=== PATIENT | male | born 1975 | race Caucasian/White ===

== ENCOUNTER 2018-01-02 09:18 | Emergency (ER) | payer OTHER ==
[2018-01-02 09:27] VITALS: BP 164/115
--- NOTE | 2018-01-02 09:33 | UC ---
UC General HPI - HPI Summary HPI Summary: This is scribe Ed Amrisa documenting for attending Dr. Austin Prieto. 42 y/o male presents to the ED c/o sinus pressure DAVID starting yesterday. Pt c/o head pressure with pain radiating to the neck. Pain located mostly in the forehead, described as a "band of pressure". Pain aggravated with head position. Associated sx: yellowish rhinorrhea. Denies sore throat, CP, SOB. Pt states general malaise. Pt states he has misplaced his Metropolol. I, Dr. Lara, personally performed the services described in this documentation as scribed in my presence and it is both accurate and complete. - History of Current Complaint Chief Complaint: UCGeneralIllness Stated Complaint: SINUS ISSUE Hx Obtained From: Patient Onset/Duration: Lasting Days Timing: Constant Pain Intensity: 5 Pain Location at: Head pressure Aggravating: Head position Associated Signs & Symptoms: Positive: Headache, Other - neck pain, rhinorrhea. Negative: Chest Pain - Allergy/Home Medications Allergies/Adverse Reactions: Allergies Allergy/AdvReac Type Severity Reaction Status Date / Time No Known Allergies Allergy Verified 01/02/18 09:27 PMH/Surg Hx/FS Hx/Imm Hx Previously Healthy: No Endocrine History: Other Other Endocrine History: Negative: DM Cardiovascular History: Hypertension, Myocardial Infarction - Surgical History Surgical History: Yes Surgery Procedure, Year, and Place: HEART CATHETERIZATION - Family History Known Family History: Positive: Cardiac Disease - triple bypass - mom, quadruple bypass - father, Diabetes - father - Social History Alcohol Use: None Substance Use Type: None Smoking Status (MU): Never Smoked Tobacco - Immunization History Most Recent Influenza Vaccination: no Review of Systems Constitutional: Negative Skin: Negative Eyes: Negative ENT: Nasal Discharge - yellowish Respiratory: Negative Cardiovascular: Negative Gastrointestinal: Negative Genitourinary: Negative Motor: Negative Neurovascular: Negative Musculoskeletal: Negative Neurological: Headache - radiating to neck Psychological: Negative All Other Systems Reviewed And Are Negative: Yes Physical Exam Triage Information Reviewed: Yes Appearance: Well-Appearing, No Pain Distress Vital Signs: Initial Vital Signs Temp 98 F 01/02/18 09:24 Pulse 86 01/02/18 09:24 Resp 18 01/02/18 09:24 BP 164/115 01/02/18 09:24 Pulse Ox 98 08/16/18 09:24 Vital Signs Reviewed: Yes Eyes: Positive: Conjunctiva Clear ENT: Positive: Pharyngeal erythema - posterior, Other - positive rhinorrhea Neck: Positive: Supple, Nontender Respiratory: Positive: Lungs clear, Normal breath sounds Cardiovascular: Positive: RRR Abdomen Description: Positive: Nontender, Soft Bowel Sounds: Positive: Present Musculoskeletal: Positive: Strength Intact, ROM Intact Neurological: Positive: Alert Psychological: Positive: Age Appropriate Behavior Skin Exam: Normal Course/Dx - Course Course Of Treatment: PATIENT IS OUT OF HIS TOPRAL XL 50MG PO QD. DISCUSSED VIRAL VERSES BACTERIAL INFECTION AND THE ROLE OF ANTIBIOTICS. THE PATIENT WISHES TO BE ON ANTIBIOTICS AT THIS TIME. F/U PMD; RECHECK SOONER IF WORSE. - Differential Dx - Multi-Symptom Provider Diagnoses: SINUSITIS. HYPERTENSION Discharge - Sign-Out/Discharge Documenting (check all that apply): Patient Departure - Discharge Plan Condition: Stable Disposition: HOME Prescriptions: Amoxicillin/Clavulanate TAB* [Augmentin TAB 875*] 875 mg PO BID #20 tab Metoprolol Succinate [Toprol Xl] 50 mg PO DAILY #30 tab.er.24h Patient Education Materials: Sinusitis (ED), Acute Headache (ED), Hypertension (ED) Forms: *Work Release Referrals: [facility]FERR[facility] [Outside] Additional Instructions: FOLLOW UP WITH YOUR DOCTOR. GET RECHECKED FOR ANY WORSENING OF YOUR CONDITION OR QUESTIONS OR CONCERNS. - Billing Disposition and Condition Condition: STABLE Disposition: Home
[2018-01-02] MEDS ORDERED: Metoprolol Tartrate TAB* 50 mg PO ONE (10:10)
[2018-01-02] MEDS ORDERED: Ibuprofen TAB* 600 MG PO ONE (10:11)
== END 2018-01-02 10:20 | disposition home or self-care (01) ==
LOC: UCEAST 09:18
DX: J32.9 Chronic sinusitis, unspecified (principal); I10 Essential (primary) hypertension; Z82.49 Family history of ischemic heart disease and other diseases of the circulatory system
CPT/HCPCS: 99212; A9270-GY; G0463

== ENCOUNTER 2018-03-24 12:43 | Emergency (ER) | payer OTHER ==
[2018-03-24 13:42] VITALS: BP 167/122
--- NOTE | 2018-03-24 13:59 | UC ---
Dental HPI - HPI Summary HPI Summary: 43-year-old male with a chief complaint of dental pain. it is left lower posterior molar. He's had a bad tooth there for a while but intermittently gives him problems. The pain started 3 days ago has been getting worse. he did try a Percocet that he had from a prior infection and that did help the pain. No fevers or chills no facial swelling. - History of Current Complaint Chief Complaint: UCDentalProblem Stated Complaint: DENTAL COMPLAINT Time Seen by Provider: 03/24/18 13:49 Pain Intensity: 0 - Allergies/Home Medications Allergies/Adverse Reactions: Allergies Allergy/AdvReac Type Severity Reaction Status Date / Time No Known Allergies Allergy Verified 03/24/18 13:42 Home Medications: Home Medications Acetaminophen [Pain Relief] 500 mg PO ONCE PRN 03/24/18 [History Confirmed 03/24] Albuterol HFA INHALER* [Ventolin HFA Inhaler*] 2 puff INH DAILY PRN 03/24/18 [ History Confirmed 03/24/18] Losartan TAB* [Cozaar TAB*] 1 tab PO QPM 03/24/18 [History Confirmed 03/24/18] PMH/Surg Hx/FS Hx/Imm Hx Cardiovascular History: Hypertension Respiratory History: Asthma - Surgical History Surgical History: Yes Surgery Procedure, Year, and Place: HEART CATHETERIZATION - Family History Known Family History: Positive: Unknown, Cardiac Disease - triple bypass - mom, quadruple bypass - father, Diabetes - father - Social History Alcohol Use: None Substance Use Type: None Smoking Status (MU): Never Smoked Tobacco - Immunization History Most Recent Influenza Vaccination: no Review of Systems Constitutional: Negative Skin: Negative Eyes: Negative ENT: Negative Respiratory: Negative Cardiovascular: Negative Gastrointestinal: Negative Motor: Negative Neurovascular: Negative Musculoskeletal: Negative Neurological: Negative Psychological: Negative Is Patient Immunocompromised?: No All Other Systems Reviewed And Are Negative: Yes Physical Exam Triage Information Reviewed: Yes Appearance: Well-Appearing, No Pain Distress, Well-Nourished Vital Signs: Initial Vital Signs Temp 98.2 F 03/24/18 13:39 Pulse 70 03/24/18 13:39 Resp 18 03/24/18 13:39 BP 167/122 03/24/18 13:39 Pulse Ox 97 03/24/18 13:39 Vital Signs Reviewed: Yes Eye Exam: Normal Eyes: Positive: Conjunctiva Clear ENT: Positive: Pharynx normal Dental: Positive: Other: - Left lower rear molar has got extensive decay center palpation there is associated gingival swelling. Neck exam: Normal Neck: Positive: Supple Respiratory Exam: Normal Respiratory: Positive: Lungs clear, Normal breath sounds, No respiratory distress Cardiovascular Exam: Normal Cardiovascular: Positive: RRR Musculoskeletal Exam: Normal Musculoskeletal: Positive: Strength Intact, ROM Intact Neurological Exam: Normal Neurological: Positive: Alert, Muscle Tone Normal Psychological Exam: Normal Psychological: Positive: Age Appropriate Behavior Skin Exam: Normal Dental Complaint Course/Dx - Differential Dx/Diagnosis Provider Diagnoses: DENTAL PAIN/INFECTION Discharge - Sign-Out/Discharge Documenting (check all that apply): Patient Departure All imaging exams completed and their final reports reviewed: No Studies - Discharge Plan Condition: Stable Disposition: HOME Prescriptions: Amoxicillin PO (*) [Amoxicillin 500 MG CAP*] 500 mg PO TID #30 cap oxyCODONE/Acetamin 5/325 MG* [Percocet 5/325 TAB*] 1 tab PO Q4H PRN #10 tab MDD 6 PRN Reason: Pain Patient Education Materials: Toothache (ED) Referrals: Laron Lau NP [Primary Care Provider] - Additional Instructions: FOLLOW UP WITH YOUR DENTIST. GET RECHECKED FOR ANY WORSENING OF YOUR CONDITION OR QUESTIONS OR CONCERNS. - Billing Disposition and Condition Condition: STABLE Disposition: Home
== END 2018-03-24 14:23 | disposition home or self-care (01) ==
LOC: UCEAST 12:43
DX: K04.7 Periapical abscess without sinus (principal); I10 Essential (primary) hypertension; J45.909 Unspecified asthma, uncomplicated
CPT/HCPCS: 99212; G0463